=== PATIENT | female | born 1990 | race Caucasian/White ===

== ENCOUNTER 2022-06-03 07:15 | Inpatient (IN) | payer BC ==
[2022-06-15] MEDS ORDERED: Scopolamine 1.5 MG Transdermal Patch TOP ONE (06:06)
[2022-06-15] MEDS ORDERED: Celecoxib 200 MG Cap PO ONE (06:08)
[2022-06-15] MEDS ORDERED: cefOXitin 2 GM in Sodium Chloride 0.9% 50 ML IV ONE ×2 (06:11→07:30)
[2022-06-15] MEDS ORDERED: Dextrose 5%-Lactated Ringers 1,000 ML IV SCH (06:15)
[2022-06-15] MEDS ORDERED: fentaNYL 250 MCG/5 ML SDV ONE ×5 (06:50→14:17)
[2022-06-15] MEDS ORDERED: Rocuronium 50 MG/5 ML Vial ONE ×3 (06:51→11:23)
[2022-06-15] MEDS ORDERED: Dexamethasone 4 MG/ML SDV ONE (06:51)
[2022-06-15] MEDS ORDERED: Glycopyrrolate 0.2 MG/ML 5 ML MDV ONE (06:51)
[2022-06-15] MEDS ORDERED: Succinylcholine 200 MG/10 ML MDV ONE (06:51)
[2022-06-15] MEDS ORDERED: Ondansetron 4 MG/2 ML SDV ONE (06:51)
[2022-06-15] MEDS ORDERED: Neostigmine Methylsulfate 1 MG/ML 5 ML Syringe ONE (06:51)
[2022-06-15] MEDS ORDERED: Propofol 200 MG/20 ML SDV ONE (06:51)
[2022-06-15 07:00] LABS: ESTIMATED GFR 87 mL/min (>60)
[2022-06-15] MEDS ORDERED: cefOXitin 2 GM Vial ONE (07:04)
[2022-06-15 07:06] LABS: HEMOGLOBIN A1C 7.3 % (4.5-6.2)
[2022-06-15] MEDS ORDERED: Ketamine 500 MG/5 ML MDV IV SCH (07:30)
[2022-06-15] MEDS ORDERED: Ketamine 17 MG in Sodium Chloride 0.9% 19.83 ML IV SCH (07:30)
[2022-06-15] MEDS ORDERED: Labetalol 20 MG/4 ML Syringe ONE (08:16)
[2022-06-15] MEDS ORDERED: Lactated Ringers 1,000 ML ONE (09:41)
[2022-06-15] MEDS ORDERED: fentaNYL 100 MCG/2 ML SDV ONE (11:55)
[2022-06-15] MEDS ORDERED: hydrOXYzine HCl 50 MG/ML SDV IM ONE (12:52)
[2022-06-15] MEDS ORDERED: Ondansetron 4 MG/2 ML SDV IVPUSH ONE (12:53)
[2022-06-15] MEDS ORDERED: droPERidol 5 MG/2 ML SDV ONE (12:53)
[2022-06-15] MEDS ORDERED: Cyclobenzaprine 10 MG Tab PO PRN (13:47)
[2022-06-15] MEDS ORDERED: HYDROmorphone 1 MG/ML Syringe IV PRN (14:00)
[2022-06-15] MEDS ORDERED: hydrOXYzine HCl 50 MG/ML SDV IM PRN (14:00)
[2022-06-15] MEDS ORDERED: diphenhydrAMINE 50 MG/ML SDV IVPUSH PRN (14:00)
[2022-06-15] MEDS ORDERED: Acetaminophen 500 MG Tab PO PRN (14:00)
[2022-06-15] MEDS ORDERED: oxyCODONE 5 MG Tab PO PRN (14:00)
[2022-06-15] MEDS ORDERED: Pantoprazole 40 MG Vial IVPUSH SCH (14:00)
[2022-06-15] MEDS ORDERED: Ondansetron 4 MG/2 ML SDV IVPUSH PRN (14:00)
[2022-06-15] MEDS ORDERED: Metoclopramide 10 MG/2 ML SDV IVPUSH PRN (14:00)
[2022-06-15] MEDS ORDERED: traMADol 50 MG Tab PO PRN (14:00)
[2022-06-15] MEDS ORDERED: Labetalol 20 MG/4 ML Syringe IVPUSH PRN (14:00)
[2022-06-15] MEDS ORDERED: HYDROmorphone 0.5 MG/0.5 ML Syringe IVPUSH PRN (14:00)
[2022-06-15] MEDS: cefOXitin 2 GM in Sodium Chloride 0.9% 50 ML IV SCH ×2 (14:35→19:35)
[2022-06-15] MEDS: Acetaminophen 500 MG Tab PO SCH ×2 (14:36→21:33)
[2022-06-15] MEDS: CHECK PATCH DAILY TOP SCH (14:50)
[2022-06-15] MEDS: Lisinopril 20 MG Tab PO SCH (15:32)
[2022-06-15] MEDS: MVI, Adult with Vitamin K 10 ML, Thiamine 200 MG, Zinc/Copper/Manganese/Selenium 1 ML i... IV SCH ×4 (17:20)
[2022-06-15] MEDS: Heparin Sodium 5,000 Units/ML Vial SUBCUT SCH (17:20)
[2022-06-15] MEDS: Cetirizine 10 MG Tab PO SCH (21:34)
[2022-06-15] MEDS: FLUTICASONE NASBOTH SCH (21:34)
[2022-06-15] MEDS: Dextrose 5%-Lactated Ringers 1,000 ML IV SCH (22:25)
[2022-06-16] MEDS ORDERED: Iopamidol 612 MG/ML 30 ML SDV PO STA (01:08)
[2022-06-16] MEDS: cefOXitin 2 GM in Sodium Chloride 0.9% 50 ML IV SCH ×4 (01:42→19:07)
[2022-06-16] MEDS: Dextrose 5%-Lactated Ringers 1,000 ML IV SCH ×2 (04:40→14:03)
[2022-06-16] MEDS: Heparin Sodium 5,000 Units/ML Vial SUBCUT SCH ×2 (06:04→17:07)
[2022-06-16] MEDS: Acetaminophen 500 MG Tab PO SCH ×3 (06:05→21:43)
[2022-06-16] MEDS ORDERED: Ondansetron 4 MG Tab.DIS PO PRN (07:10)
[2022-06-16] MEDS ORDERED: hydrOXYzine HCl 25 MG Tab PO PRN (07:11)
[2022-06-16] MEDS: Celecoxib 200 MG Cap PO SCH ×2 (08:34→20:07)
[2022-06-16] MEDS: Lisinopril 20 MG Tab PO SCH (08:34)
[2022-06-16] MEDS: Sertraline 25 MG Tab PO SCH (08:34)
[2022-06-16] MEDS: CHECK PATCH DAILY TOP SCH (08:35)
[2022-06-16] MEDS: SCOPOLAMINE PATCH CHECK TOP SCH (08:35)
[2022-06-16] MEDS: MVI, Adult with Vitamin K 10 ML, Thiamine 200 MG, Zinc/Copper/Manganese/Selenium 1 ML i... IV SCH ×4 (15:49)
[2022-06-16] MEDS ORDERED: Pantoprazole 40 MG Delayed-Release Granules 1 Packet PO SCH (16:30)
[2022-06-16] MEDS: FLUTICASONE NASBOTH SCH (20:07)
[2022-06-16] MEDS: Cetirizine 10 MG Tab PO SCH (20:07)
[2022-06-17] MEDS: cefOXitin 2 GM in Sodium Chloride 0.9% 50 ML IV SCH ×2 (02:17→07:22)
[2022-06-17] MEDS: Dextrose 5%-Lactated Ringers 1,000 ML IV SCH (02:17)
[2022-06-17] MEDS: Heparin Sodium 5,000 Units/ML Vial SUBCUT SCH (05:49)
[2022-06-17] MEDS: Acetaminophen 500 MG Tab PO SCH (05:50)
[2022-06-17] MEDS: Celecoxib 200 MG Cap PO SCH (08:28)
[2022-06-17] MEDS: SCOPOLAMINE PATCH CHECK TOP SCH (08:32)
[2022-06-17] MEDS: CHECK PATCH DAILY TOP SCH (08:32)
[2022-06-17] MEDS: Sertraline 25 MG Tab PO SCH (08:33)
[2022-06-17] MEDS: Lisinopril 20 MG Tab PO SCH (08:33)
[2022-06-17] MEDS ORDERED: Magnesium Hydroxide 400 MG/5 ML Susp 30 ML Cup PO ONE (08:47)
[2022-06-17] MEDS ORDERED: Cyanocobalamin (Vitamin B12) 1,000 MCG/ML SDV IM ONE (09:00)
== END 2022-06-17 09:02 | disposition home or self-care (01) | DRG 403 ==
LOC: JP.SDSSCHI 06-15 05:24 → JP.MS 06-15 13:35
PROVIDERS: ADMIT Surgery; ATTEND Surgery
PROC: 0D164ZA Bypass Stomach to Jejunum, Percutaneous Endoscopic Approach (ICD-10-PCS; principal; 2022-06-15)
PROC: 0FB04ZX Excision of Liver, Percutaneous Endoscopic Approach, Diagnostic (ICD-10-PCS; 2022-06-15)
DX: E66.01 Morbid (severe) obesity due to excess calories (principal); I10 Essential (primary) hypertension; F32.A Depression, unspecified; R16.0 Hepatomegaly, not elsewhere classified; E28.2 Polycystic ovarian syndrome; F41.9 Anxiety disorder, unspecified; R73.03 Prediabetes; Z68.42 Body mass index [BMI] 45.0-49.9, adult; Z79.899 Other long term (current) drug therapy; Z86.73 Personal history of transient ischemic attack (TIA), and cerebral infarction without residual deficits
CPT/HCPCS: 36415; 74240; 74240-26; 80053; 83036; 83735; 83880; 84100; 84703; 85027; 86850; 86900; 86901; 88307; 88313; 93005; A9270-GY; C9113; J0131; J0171; J0330; J0694; J1100; J1644; J1790; J1815-GY; J2405; J2704; J2710; J2765; J2795; J3010; J3410; J3411; J3420; J3490; J7120; J7121; Q9967